=== PATIENT | female | born 1965 | race African-American/Black ===

== ENCOUNTER → 2020-02-22 | Outpatient (CLI) | payer OTHER | LOC: HYPER 13:35 | DX: L89.153 Pressure ulcer of sacral region, stage 3 (principal); L89.326 Pressure-induced deep tissue damage of left buttock; L89.312 Pressure ulcer of right buttock, stage 2; G82.20 Paraplegia, unspecified; G89.29 Other chronic pain; G62.9 Polyneuropathy, unspecified; M19.90 Unspecified osteoarthritis, unspecified site; N31.9 Neuromuscular dysfunction of bladder, unspecified; M24.541 Contracture, right hand; M24.542 Contracture, left hand; G43.909 Migraine, unspecified, not intractable, without status migrainosus; E66.01 Morbid (severe) obesity due to excess calories; F41.9 Anxiety disorder, unspecified; Z68.25 Body mass index [BMI] 25.0-25.9, adult; Z87.891 Personal history of nicotine dependence; V09.20XA Pedestrian injured in traffic accident involving unspecified motor vehicles, initial encounter ==

== ENCOUNTER → 2020-03-07 | Outpatient (CLI) | payer OTHER | LOC: HYPER 12:30 | DX: L89.153 Pressure ulcer of sacral region, stage 3 (principal); G82.20 Paraplegia, unspecified; G62.9 Polyneuropathy, unspecified; G89.29 Other chronic pain; G43.909 Migraine, unspecified, not intractable, without status migrainosus; E66.01 Morbid (severe) obesity due to excess calories; L84 Corns and callosities; N31.9 Neuromuscular dysfunction of bladder, unspecified; M24.541 Contracture, right hand; M24.542 Contracture, left hand; M19.90 Unspecified osteoarthritis, unspecified site; F41.9 Anxiety disorder, unspecified; Z87.891 Personal history of nicotine dependence ==

== ENCOUNTER → 2020-04-17 | Outpatient (CLI) | payer OTHER | LOC: HYPER 11:53 | PROVIDERS: ATTEND Emergency Medicine | DX: L89.153 Pressure ulcer of sacral region, stage 3 (principal); L89.326 Pressure-induced deep tissue damage of left buttock; L89.312 Pressure ulcer of right buttock, stage 2; G62.9 Polyneuropathy, unspecified; N31.9 Neuromuscular dysfunction of bladder, unspecified; G89.29 Other chronic pain; M24.541 Contracture, right hand; M24.542 Contracture, left hand; G82.20 Paraplegia, unspecified; M19.90 Unspecified osteoarthritis, unspecified site; G43.909 Migraine, unspecified, not intractable, without status migrainosus; E66.01 Morbid (severe) obesity due to excess calories; F41.9 Anxiety disorder, unspecified; Z68.25 Body mass index [BMI] 25.0-25.9, adult; Z87.891 Personal history of nicotine dependence; V09.20XS Pedestrian injured in traffic accident involving unspecified motor vehicles, sequela ==